=== PATIENT | female | born 1985 | race African-American/Black ===

== ENCOUNTER 2023-06-12 06:00 | Inpatient (IN) | payer BC ==
[2023-06-12] MEDS: ELECTROLYTE-148 SOLN 500 ML IV SCH ×2 (06:35→07:00)
[2023-06-12 06:41] VITALS: BMI 39.9
[2023-06-12] MEDS: CITRIC ACID/SODIUM CITRATE 30 ML UNIT-DOSE CUP PO ONE ×2 (07:40→09:45)
[2023-06-12] MEDS ORDERED: morphine SULFATE/PF 1 MG/2 ML (2cc Syringe - QUVA) ONE (07:48)
[2023-06-12] MEDS ORDERED: FENTANYL CITRATE/PF 50 MCG/ML VIAL ONE (07:48)
[2023-06-12] MEDS ORDERED: KETOROLAC TROMETHAMINE 30 MG/1 ML VIAL ONE (07:48)
[2023-06-12] MEDS ORDERED: OXYTOCIN 10 UNITS/ML VIAL ONE (07:48)
[2023-06-12] MEDS ORDERED: PHENYLEPHRINE HCL 10 MG/1 ML SINGLE DOSE VIAL ONE (07:48)
[2023-06-12] MEDS ORDERED: ONDANSETRON 4 MG/2 ML VIAL ONE ×2 (07:48→10:53)
[2023-06-12] MEDS ORDERED: ceFAZolin SODIUM 1 GM VIAL ONE (07:49)
[2023-06-12] MEDS: OXYTOCIN 20 UNITS in 0.9% NS 20 UNIT/1,000 ML INFUS.BAG IV SCH (08:47)
[2023-06-12] MEDS: DEXTROSE 5%-LACTATED RINGERS 1,000 ML IV SCH (09:45)
[2023-06-12] MEDS ORDERED: IBUPROFEN 800 MG/8 ML IJ IVPB PRN (09:46)
[2023-06-12] MEDS: FERROUS SO4 325 MG TABLET (FP) PO SCH (10:00)
[2023-06-12] MEDS ORDERED: OXYTOCIN 20 UNITS in 0.9% NS 20 UNIT/1,000 ML INFUS.BAG IV ONE (10:15)
[2023-06-12] MEDS: PRENATAL VITAMINS W/ FOLIC ACID TABLET (FP) PO SCH (10:50)
[2023-06-12] MEDS: ONDANSETRON 4 MG/2 ML VIAL IVPUSH PRN (10:54)
[2023-06-12] MEDS ORDERED: ACETAMINOPHEN INJECTION 100 ML IVPB ONE (11:48)
[2023-06-12] MEDS: ACETAMINOPHEN 1000 MG/100 ML BAG IVPB PRN (11:49)
[2023-06-12] MEDS: METHYLERGONOVINE MALEATE 0.2 MG/1 ML AMP IM PRN (14:11)
[2023-06-12] MEDS ORDERED: oxyCODONE HCL 5 MG TABLET PO PRN (21:46)
[2023-06-13] MEDS: IBUPROFEN 600 MG TABLET (FP) PO PRN (03:21)
[2023-06-13] MEDS: SIMETHICONE 80 MG TAB.CHEW (FP) PO PRN (03:21)
[2023-06-13 07:38] LABS: BASO % 0.3 % (0-2.0); EOS % 1.4 % (0-4.5); HEMATOCRIT 25.5 % (32.4-45.2); HEMOGLOBIN 8.5 GM/dL (10.7-15.3); LYMPH % 11.6 % (8-40); MCH 29.5 pg (25.7-33.7); MCHC 33.2 g/dl (32.0-36.0); MEAN CELL VOLUME 88.8 fl (80-96); MEAN PLT VOLUME 7.8 fl (7.5-11.1); MONO % 8.2 % (3.8-10.2); NEUT % 78.5 % (42.8-82.8); PLATELET COUNT 285 10^3/uL (134-434); RBC 2.87 M/mm3 (3.60-5.2); RDW 13.7 % (11.6-15.6); WHITE BLOOD COUNT 12.7 K/mm3 (4.0-10.0)
[2023-06-13] MEDS ORDERED: BISACODYL 10 MG SUPP.RECT RC PRN (09:46)
[2023-06-13] MEDS: FLU VACCINE (FLULAVAL) PF 60 MCG/0.5 ML SYRINGE 2023-2024 IM ONE (12:48)
[2023-06-13] MEDS: DIPHTH,PERTUSS(ACELL),TET 0.5 ML DISP.SYRIN IM ONE (12:50)
[2023-06-13] MEDS: ACETAMINOPHEN 325 MG TABLET (FP) PO PRN (14:03)
[2023-06-13] MEDS: SENNOSIDES/DOCUSATE COMBO (SENNA PLUS) TABLET (UD) PO PRN (21:10)
[2023-06-14] MEDS: oxyCODONE HCL 5 MG TABLET PO PRN (08:14)
[2023-06-15 11:08] VITALS: BP 127/82; RESP 18; TEMP 99
[2023-06-15 12:15] VITALS: PULSE 94
== END 2023-06-15 12:34 | disposition home or self-care (01) | DRG 785 ==
LOC: JLDR 06:00 → J3W 12:00
PROVIDERS: ADMIT Obstetrics & Gynecology; ATTEND Obstetrics & Gynecology
PROC: 10D00Z1 Extraction of Products of Conception, Low, Open Approach (ICD-10-PCS; principal; 2023-06-12)
PROC: 0UL70ZZ Occlusion of Bilateral Fallopian Tubes, Open Approach (ICD-10-PCS; 2023-06-12)
DX: O34.219 Maternal care for unspecified type scar from previous cesarean delivery (principal); Z3A.39 39 weeks gestation of pregnancy; Z37.0 Single live birth; Z30.2 Encounter for sterilization
CPT/HCPCS: 36415; 80053; 85025; 85610; 85730; 86780; 86850; 86900; 86901; 87389; 88302-TC; 88307-TC; 90686; 90715; 94010; G0008; J0131